=== PATIENT | male | born 1985 | race Caucasian/White ===

== ENCOUNTER 2023-09-18 18:02 | Emergency (ER) | payer OTHER, SELFPAY ==
[2023-09-18 18:18] VITALS: BP 134/81; PULSE 74; RESP 16; TEMP 36.9; O2SAT 96; BMI 35.2
--- NOTE | 2023-09-18 20:24 | ED_ITS ---
HPI - General Adult General: Chief complaint: General Medical Stated complaint: feels like has a parasite Time Seen by Provider: 09/18/23 20:22 History of Present Illness: 37-year-old male patient comes in today for concerns of abdominal discomfort and feeling like his stomach is moving. Patient is thinks he may have a parasite in his stomach. Patient uses marijuana routinely and smokes tobacco. Patient denies any drugs or alcohol use. Patient does have a intellectual disability and lives in assisted living home. Female caregiver states that his roommate was concerned about him due to him talking to himself at times. When questioned mother patient has hallucinations he denies hallucinations. Patient states that he just laughs out loud because he is thinking to himself. Patient was asked if he was suicidal homicidal patient denies any thoughts of harm to himself or others. Associated symptoms: Deny chest pain or dyspnea Review of Systems General: Reports: 10 or more systems reviewed and unremarkable except in HPI and below Const: Denies: fever(s) Card: Denies: chest pain Resp: Denies: dyspnea GI: Reports: abdominal pain (Abdominal movement) and constipation Physical Exam Const: COMMON NORMALS: alert HENMT: COMMON NORMALS: normocephalic HEAD & SCALP: normocephalic Neck/C-Spine: COMMON NORMALS: full ROM Resp: COMMON NORMALS: normal respiratory effort and clear to auscultation bilaterally AUSCULTATION: clear to auscultation bilaterally Cardio: COMMON NORMALS: regular rate and regular rhythm RATE: regular rate RHYTHM: regular rhythm GI: COMMON NORMALS: Soft to palpation and non-tender PALPATION: Yes Soft to palpation Back/Pelvis: COMMON NORMALS: thoracic and lumbar spine normal to inspection Extremity: COMMON NORMALS: normal to inspection Neuro: SENSORIUM/ORIENTATION: Yes alert Skin: COMMON NORMALS: turgor normal GENERAL SKIN EXAM: turgor normal Course Vital Signs: Vital signs: Vital Signs Temperature 98.5 F 09/18/23 18:18 Pulse Rate 69 09/18/23 20:30 Respiratory Rate 15 09/18/23 20:30 Blood Pressure 144/79 09/18/23 20:30 Pulse Oximetry 96 09/18/23 20:30 Oxygen Delivery Me thod Room Air 09/18/23 20:30 MDM - General Adult Medical Decision Making Patient came in today for concerns he might have a parasite. Further discussion realized the patient probably has been having some constipation. Patient has not had a stool for 4 days. On exam patient appears nontoxic. Abdomen soft and nontender. Bowel sounds are present. Vital signs are normal. Differential diagnosis includes not limited to parasitosis, constipation, anxiety, gastroenteritis, viral syndrome. KUB was normal. Patient was sent home with collection cups for stool sample to check for parasites. Discussed need for patient to monitor for fever and blood in vomit or stool and need to return if the symptoms occurred. Patient and caregiver both reported understanding of plan and need for follow-up or return to the ER. Lab Data Radiology Impressions KUB X-Ray 09/18/23 20:34 IMPRESSION: No acute findings. All radiology interpretation(s) finalized by discharge Discharge Plan Discharge Patient Disposition: Home Clinical Impression: History of pinworm infection Constipation Qualifiers: Constipation type: unspecified constipation type Qualified Code(s): K59.00 - Constipation, unspecified Condition: Stable Discharge Orders: Discharge ED (Routine); Ordered 09/18/23 Ordered By: Thee Pleitez Referrals: Jorge Bucio MD [Primary Care Provider] - Discharge Diet: Usual diet Discharge Activity: Increase activity as tolerated Patient Instructions: Constipation (ED) Activity Restrictions/Additional Instructions: Collect stool sample and take your primary care office to be sent off for parasite concerns. Drink plenty water and fluids. Eat a healthy diet with plenty of fresh fruits and vegetables and whole grains to help with constipation. Also make sure you are consuming plenty of water daily to help with constipation. Follow-up with primary care. Return to ED for new concerns or worsening symptoms such as blood in the vomit or stool, fever greater than 100.4, or new concerns. Coding Level of Care Code ED [employer] for [employer]
[2023-09-18 20:30] VITALS: BP 144/79; PULSE 69; RESP 15; O2SAT 96
--- NOTE | 2023-09-18 20:34 | XRR_ITS ---
PROCEDURE INFORMATION: Exam: XR Abdomen Exam date and time: 09/18/2023 8:45 PM Age: 37 years old Clinical indication: Constipation TECHNIQUE: Imaging protocol: Radiologic exam of the abdomen. Views: Frontal supine view of the abdomen. 1 View. COMPARISON: CT abdomen pelvis w con* [id number] 09/18/2016 6:35 PM FINDINGS: Gastrointestinal tract: Normal. No bowel dilation. Bones/joints: Unremarkable. XR/XR KUB [id number] IMPRESSION: No acute findings.
[2023-09-18 21:24] VITALS: BP 144/79; PULSE 69; RESP 15; TEMP 36.9; O2SAT 96
== END 2023-09-18 21:25 | disposition home or self-care (01) ==
PROVIDERS: Emergency Provider Nurse Practitioner Family; PCP Psychiatry & Neurology Neurology
DX: K59.00 Constipation, unspecified (principal)
CPT/HCPCS: 74018; 99283